=== PATIENT | female | born 1955 | race Two or more races ===

== ENCOUNTER 2017-01-30 13:48 | Emergency (ER) | payer BC ==
--- NOTE | 2017-02-01 14:00 | ER ---
ADMIT: 01/30/2017 RM/LOC: ER [facility] MR#: [id number] [id number] [place], [place] [id number] [facility] [facility] [address] [address] Emergency Room Report SEX: F AGE: 61 : 1955 DATE: 01/30/2017 ADDENDUM: See T-sheet for complete H and P. HISTORY OF PRESENT ILLNESS: A 61-year-old female, comes in with complaints of abdominal pain. The episode she is having now began several hours ago and has been quite severe and at times, it doubled her over. She states it is primarily in her lower abdomen, suprapubic, with some radiation to the right side. She notes this sometimes is worse when she moves, but did not state that it was any worse in the drive over here. She has had some nausea. No vomiting. Did not report fevers until just shortly before she arrived and she said she felt warm and did not have a temperature at home, but she was febrile when she presented to the ER. RECENT HISTORY: She had some trouble with some constipation a few weeks ago when she had similar pain but not nearly as severe, which resolved. She has no history of diverticulosis or diverticulitis in the past. PHYSICAL EXAMINATION: The patient does not appear to be in pain. Does appear comfortable but on palpation, she is tender suprapubic and some on the right lower quadrant. LABORATORY AND X-RAY DATA: We ended up doing a CBC which showed she had a slightly elevated white blood cell count of 12.3. Normal chemistries. Unremarkable UA. CT of abdomen and pelvis was done with contrast, which revealed diverticulitis of the sigmoid colon. At this point, the patient's pain has improved in the ER and she does want to try to go home and do outpatient therapy. She will be placed on Cipro, Flagyl for the next 10 days, and was given Allen for pain control. She is encouraged to use clear liquid diet for the next roughly 36 hours and slowly advance her diet and increase her roughage in her diet. She is to start using stool softeners also and drink plenty of water. She is to call her primary care physician's office on Tuesday to arrange for a followup in the next week. The patient is discharged home in stable condition with diagnoses of: 1. Diverticulitis. 2. Abdominal pain. Dima Soria MD/ binh JOB #: [id number] CC: Constantine Gurrola MD, Attending Physician Balwinder Garcia MD, Family Physician
== END 2017-01-30 16:35 | disposition home or self-care (01) ==
LOC: ER 13:48
DX: K57.92 Diverticulitis of intestine, part unspecified, without perforation or abscess without bleeding (principal); I10 Essential (primary) hypertension; E78.5 Hyperlipidemia, unspecified; Z90.710 Acquired absence of both cervix and uterus; Z79.899 Other long term (current) drug therapy